=== PATIENT | male | born 1985 | race Caucasian/White ===

== ENCOUNTER 2024-05-20 06:48 | Emergency (ER) | payer SELFPAY ==
[2024-05-20] MEDS: Proparacaine 0.5% Ophth Soln 15 ML Bottle EYELF STA (07:30)
[2024-05-20] MEDS: Fluorescein 1 MG Ophth Strip EYELF ONE (07:31)
[2024-05-20 08:23] VITALS: BP 129/83; PULSE 82
== END 2024-05-20 08:23 | disposition home or self-care (01) ==
LOC: MW.ED 06:48
DX: S05.02XA Injury of conjunctiva and corneal abrasion without foreign body, left eye, initial encounter (principal); Z88.0 Allergy status to penicillin; Z75.8 Other problems related to medical facilities and other health care; X58.XXXA Exposure to other specified factors, initial encounter
CPT/HCPCS: 99283; J3490